=== PATIENT | male | born 1990 | race African-American/Black ===

== ENCOUNTER → 2023-04-04 | Outpatient (CLI) | payer OTHER | END | disposition home or self-care (01) | LOC: RADMN 10:24 | PROVIDERS: ATTEND Internal Medicine | DX: Z86.11 Personal history of tuberculosis (principal) | CPT/HCPCS: 71045 ==

== ENCOUNTER → 2024-10-10 | Outpatient (CLI) | payer OTHER | END | disposition home or self-care (01) | LOC: RADPV 09:27 | PROVIDERS: ATTEND Internal Medicine | DX: J43.9 Emphysema, unspecified (principal); R59.0 Localized enlarged lymph nodes; N62 Hypertrophy of breast; R07.9 Chest pain, unspecified; I10 Essential (primary) hypertension | CPT/HCPCS: 71250; 76770 ==

== ENCOUNTER 2025-05-07 15:24 | Emergency (ER) | payer OTHER ==
[~2025-05-07] VITALS: Ht 177.8 cm; Wt 88.6 kg
[2025-05-07] MEDS ORDERED: CARV3 PO (15:28)
[2025-05-07] MEDS ORDERED: AMLO-258 PO (15:28)
[2025-05-07] MEDS ORDERED: LISI-894 PO (15:28)
[2025-05-07 17:41] VITALS: BP 165/111; PULSE 62; RESP 16; TEMP 98.2; O2SAT 100
== END 2025-05-07 18:17 | disposition home or self-care (01) ==
LOC: EMS 15:24
DX: S90.511A Abrasion, right ankle, initial encounter (principal); I10 Essential (primary) hypertension; Z79.899 Other long term (current) drug therapy; W22.03XA Walked into furniture, initial encounter; Y93.89 Activity, other specified; Y92.89 Other specified places as the place of occurrence of the external cause; Y99.8 Other external cause status
CPT/HCPCS: 99283